=== PATIENT | female | born 1940 | race Caucasian/White ===

== ENCOUNTER 2017-10-09 02:02 | Inpatient (IN) | payer OTHER, MEDICARE ==
[~2017-10-09] VITALS: Ht 157.5 cm; Wt 88.1 kg
--- NOTE | 2017-10-09 02:34 | ED CARDIAC/CP/PALPITATIONS ---
History of Present Illness General Chief Complaint: Chest Pain Stated Complaint: PT C/O LOW BP,CP,+V YESTERDAY HX HYPERTENSION Source: patient, family, old records Exam Limitations: no limitations Vital Signs & Intake/Output Vital Signs & Intake/Output Vital Signs Date Time Temp Pulse Resp B/P B/P Pulse O2 O2 Flow FiO2 Mean Ox Delivery Rate 10/097 98.0 98 20 148/69 96 Room Air 10/09 0405 95 147/100 10/09 0340 98.0 117 18 127/71 95 Room Air 10/09 0332 98.0 117 20 127/71 / 0307 97.8 120 20 134/50 / 0226 97 Room Air 10/09 0221 97.8 104 16 161/94 96 Room Air Allergies Coded Allergies: Penicillins (Mild, rash 10/09/17) Triage Note: 77yo FEMALE TO RM 6 FROME TRIAGE W/CO "FUNNY EELING IN HER CHEST ALL DAY SUNDAY" STAES "HER BP WAS LOW LAST ARIC--?106/70" AND JUST DIDN'T FEEL RIGHT ALL DAY. Triage Nurses Notes Reviewed? yes HPI: Patient presents to the emergency department with an intermittent fluttering in her chest as well as intermittent indigestion feeling. Patient states his symptoms started on Sunday when she had a relatively sudden onset of crampy epigastric pain. The pain increased over approximately 15 minutes before she became nauseous and then vomited and when she vomited the pain went away. Patient then felt fine for the rest of Sunday however when she woke up on Sunday she was just feeling very weak and tired. Patient states that intermittently throughout the day she would get an indigestion feeling in her substernal area. Patient states that she would take Tums and the symptoms are slowly go away. She also noticed that she was getting a little bit short of breath with exertion. Tonight she felt a fluttering sensation in her chest. Patient did not take her evening dose of labetalol. Patient comes to the emergency department for evaluation. Past History Travel History Traveled to [place] past 21 day No Medical History Any Pertinent Medical History? see below for history Cardiovascular: hypertension, hyperlipidemia Endocrine: diabetes, hypothyroidism Influenza Vaccine: 03/04/09 Surgical History Surgical History: non-contributory Psychosocial History Who do you live with Spouse What is your primary language [place]ian Tobacco Use: Quit >30 days ago ETOH Use: denies use Illicit Drug Use: denies illicit drug use Family History Hx Contributory? No Review of Systems Review of Systems Constitutional: Reports: no symptoms. EENTM: Reports: no symptoms. Respiratory: Reports: see HPI, short of breath. Cardiovascular: Reports: see HPI, chest pain, palpitations. GI: Reports: see HPI, abdominal pain, nausea, vomiting. Genitourinary: Reports: no symptoms. Musculoskeletal: Reports: no symptoms. Skin: Reports: no symptoms. Neurological/Psychological: Reports: no symptoms. Hematologic/Endocrine: Reports: no symptoms. Immunologic/Allergic: Reports: no symptoms. All Other Systems: Reviewed and Negative Physical Exam Physical Exam General Appearance: well developed/nourished, alert, awake, anxious, mild distress Head: atraumatic, normal appearance Eyes: Bilateral: PERRL, EOMI. Ears, Nose, Throat: normal pharynx, normal ENT inspection, hearing grossly normal Neck: normal inspection, supple, full range of motion Respiratory: normal breath sounds, chest non-tender, no respiratory distress, lungs clear Cardiovascular: normal peripheral pulses, tachycardia, irregularly irregular Gastrointestinal: normal bowel sounds, soft, non-tender, no organomegaly Back: normal inspection, normal range of motion Extremities: normal inspection, normal capillary refill, normal range of motion, no edema Neurologic/Psych: no motor/sensory deficits, awake, alert, oriented x 3, normal mood/affect Skin: intact, normal color, warm/dry Lymphatic: no anterior cervical christopher Core Measures ACS in differential dx? Yes CVA/TIA Diagnosis No Sepsis Present: No Sepsis Focused Exam Completed? No Progress Differential Diagnosis: AMI, atrial fibrillation, myocarditis, pericarditis, pneumonia, pneumothorax, pulmonary embolism Plan of Care: Orders Procedure Date/time Status PARTIAL THROMBOPLASTIN TIME 10/09 236 Complete PROTHROMBIN TIME 10/09 236 Complete D-DIMER 10/10 235 Complete Telemetry/Affiliate Marketing Specialist 10/09 232 Active URINALYSIS 10/09 232 Complete THYROID STIMULATING HORMONE 10/09 232 Complete TROPONIN LEVEL 10/09 232 Complete MAGNESIUM 10/09 232 Complete COMPREHENSIVE METABOLIC PANEL 10/09 232 Complete CBC WITHOUT DIFFERENTIAL 10/09 232 Complete EKG 10/09 0205 Active Current Medications Sig/Nicol Start time Last Medication Dose Stop Time Status Admin Heparin Sodium 25,000 UNIT Q24H 10/09 0500 UNVr (Porcine) (Heparin) Sodium Chloride 500 ML Laboratory Tests 10/09/17 0315: Urinalysis LIGHT H, Urine Color YEL, Urine Clarity CLEAR, Urine pH 6.5, Ur Specific [place] 1.010, Urine Protein NEG, Urine Ketones NEG, Urine Nitrite NEG, Urine Bilirubin NEG, Urine Urobilinogen 0.2, Ur Leukocyte Esterase MOD H, Ur Microscopic SEDIMENT EXAMINED, Urine RBC RARE, Urine WBC 10-15 H, Ur Epithelial Cells FEW, Urine Bacteria FEW H, Urine Hemoglobin SMALL H, Urine Glucose 100 H 10/09/17 0300: PT 11.0, INR 1.01, APTT 29, D-Dimer High Sensitivty 216 10/09/17 0237: Anion Gap 14, Estimated GFR 43 L, BUN/Creatinine Ratio 25.8 H, Glucose 170 H, Calcium 9.7, Magnesium 2.0, Total Bilirubin 0.7, AST 17, ALT 19, Alkaline Phosphatase 83, Troponin I < 0.01, Total Protein 7.3, Albumin 4.4, Globulin 2.9, Albumin/Globulin Ratio 1.5, TSH 3.500, CBC w Diff NO MAN DIFF REQ, RBC 4.48, MCV 89.6, MCH 29.9, MCHC 33.3, RDW 13.1, MPV 7.4, Gran % 63.2, Lymphocytes % 24.6, Monocytes % 8.1, Eosinophils % 3.4, Basophils % 0.7, Absolute Granulocytes 4.8, Absolute Lymphocytes 1.9, Absolute Monocytes 0.6, Absolute Eosinophils 0.3, Absolute Basophils 0.1 10/09/17 0233: PT Cancelled, INR Cancelled, APTT Cancelled Diagnostic Imaging: Viewed by Me: Radiology Read. Discussed w/RAD: Radiology Read. CXR Impression: PATIENT: SANAM DA SILVA PRESENT AGE : 77 PATIENT ACCOUNT NO: [id number] : 38 LOCATION: [facility] ORDERING PHYSICIAN: Hank Keith MD SERVICE DATE: 10/09/17 EXAM TYPE: RAD - XRY-PORTABLE CHEST XRAY EXAMINATION: XR PORTABLE CHEST CLINICAL INFORMATION: Chest pain. COMPARISON: CT from 08/11/2009 TECHNIQUE: Portable frontal view of the chest was obtained. FINDINGS: BX leads overlie the chest. The lungs are well expanded. There is no focal consolidation, edema, or effusion. No pneumothorax. The cardiomediastinal silhouette is within normal limits. No acute osseous abnormality. IMPRESSION: No acute pulmonary findings. DICTATED BY: Corky Dickinson MD DATE/TIME DICTATED:10/09/17307 BOTTOM MAN:JAYSON DATE/ TIME TRANSCRIBED:10/09/17307 CONFIDENTIAL, DO NOT COPY WITHOUT APPROPRIATE AUTHORIZATION. <Electronically signed in Other Vendor System> SIGNED BY: Corky Dickinson MD 10/09/17310 Initial ED EKG: NEW ONSET AFIB WITH RVR AND LBBB, THE A FIB IS NEW, SHE HAS HAD LBBB IN THE PAST EVEN THOUGH PRIOR EKG SHOWS NSR WITHOUT A LBBB. Prior EKG: changed Rhythm Strip: atrial fibrillation Comments: I discussed with the patient and her granddaughter the importance of anticoagulation. Questions are answered. Heparin drip has been initiated. Departure Departure Disposition: STILL A PATIENT Condition: Stable Clinical Impression Primary Impression: New onset a-fib Referrals: Jean TOVAR,Eliceo Ramos (PCP/Family) Departure Forms: Customer Survey General Discharge Information Admission Note Spoke With: Neha Barnes MD Documentation of Exam: Documentation of any treatments & extenuating circumstances including Concerns Regarding Discharge (functional status, medication knowledge or non-compliance, living conditions, etc.) that warrant an admission rather than observation: [ ADMIT TO TELE, SERIAL ENZYMES, CARDIOLOGYCONSULT (KORI LIMA), IV HEPARIN, RATE CONTROL] Critical Care Note Critical Care Note Critical Care Time: mins: (120 MIN)
[2017-10-09 02:51] LABS: ABSOLUTE BASOPHIL COUNT 0.1 /CUMM (0.0-0.2); ABSOLUTE EOSINOPHIL COUNT 0.3 /CUMM (0.0-0.7); ABSOLUTE GRANULOCYTE CT 4.8 /CUMM (1.4-6.5); ABSOLUTE LYMPH COUNT 1.9 /CUMM (1.2-3.4); ABSOLUTE MONOCYTE COUNT 0.6 /CUMM (0.10-0.60); BASOPHIL % 0.7 % (0.0-2.0); EOSINOPHIL % 3.4 % (0-5); GRANULOCYTE % 63.2 % (42.2-75.2); HEMATOCRIT 40.1 % (37-47); MEAN CORPUSCULAR HGB 29.9 PG (27.0-31.0); MEAN CORPUSCULAR HGB CONC 33.3 G/DL (33.0-37.0); MEAN CORPUSCULAR VOLUME 89.6 FL (81.0-99.0); MEAN PLATELET VOLUME 7.4 FL (7.4-10.4); PLATELET COUNT 261 /CUMM (130-400); RBC DISTRIBUTION WIDTH 13.1 % (11.5-14.5); RED BLOOD CELL CT 4.48 /CUMM (4.20-5.40); WHITE BLOOD CELL COUNT 7.6 /CUMM (4.8-10.8)
--- NOTE | 2017-10-09 03:11 | RADIOLOGY REPORT ---
EXAMINATION: XR PORTABLE CHEST CLINICAL INFORMATION: Chest pain. COMPARISON: CT from 08/11/2009 TECHNIQUE: Portable frontal view of the chest was obtained. FINDINGS: BX leads overlie the chest. The lungs are well expanded. There is no focal consolidation, edema, or effusion. No pneumothorax. The cardiomediastinal silhouette is within normal limits. No acute osseous abnormality. IMPRESSION: No acute pulmonary findings.
[2017-10-09 03:22] LABS: PTT 29 SEC (25-37)
[2017-10-09] MEDS ORDERED: CRESTOR10 M1 PO (05:09)
[2017-10-09] MEDS ORDERED: LABETALOL HCL200 M1 PO (05:09)
[2017-10-09] MEDS ORDERED: AMLODIPINE BESY10 M1 PO (05:09)
[2017-10-09] MEDS ORDERED: METFORMIN HCL1000 M1 PO (05:10)
[2017-10-09] MEDS ORDERED: LEVOTHYROXINE100 MC1 PO (05:10)
[2017-10-09] MEDS ORDERED: EDARBYCLOR 40-1 EAC1 PO (05:10)
--- NOTE | 2017-10-09 05:17 | History & Physical ---
Augie Montana 10/09/17 0514: General Information and HPI MD Statement: I have seen and personally examined SANAM DA SILVA and documented this H&P. The patient is a 77 year old F who presented with a patient stated chief complaint of [CHEST PAIN]. Source of Information: patient, family, old records Exam Limitations: no limitations History of Present Illness: This is 77-year-old female with a medical history of hypertension, hyperlipidemia, hypothyroidism, gyx-wlyetri-pfrjhhnts diabetes mellitus. She presents to the emergency department with an intermittent fluttering in her chest as well as intermittent indigestion feeling. She stated that 2 days ago she started to complain of abdominal discomfort ans after that she felt nauseated and she vomited once non bloody and after that the ABD pain subside. On the Next day she start to feel some acid reflux symptoms with some chest discomfort so she took tums that did not help, also she felt tired, weak and fatigued. she stated that when she went to check her BP she found her heart rate more than 120s and her BP was low of 106/60 which is not her usual as most of the time her BP run in 140s. she deny any chest pain, chest pressure, shortness of breath, dizziness, lightheadedness, orthopnea. She stated that 2 weeks ago she felt dizzy and lightheaded so she checked her BP and was low 95/60, she went to see her PCP how recheck it and was in 120s and he advice her not to take her BP meds in that day. Currently she denies any fever, chills, shortness of breath, abdominal pain, nausea, vomiting, diarrhea, constipation, hematuria, dysuria, headache, blurry vision. She stated that he Norvasc was decreased from 10 mg to 5 mg due to the lower extremity edema. In the ED she was found to have new-onset A-fib with old LBBB, she was received total of 10 mg of IV lopressor and full dose of ASA and started on herparin drip. Her Cr/BUN at baseline 1.. CXR was within normal limits. Off note the p.t EMR showed that she was admitted to [facility] in 2009, and on that time she has sinus bradycardia with LBBB, we currently do not have the EKG of 2009, what we have is the EKG form 2002 that showed she was in normal sinus rhythm. Allergies/Medications Allergies: Coded Allergies: Penicillins (Mild, rash 10/09/17) Home Med list Amlodipine Besylate 10 MG TABLET 0.5 TAB PO DAILY HTN (Reported) Azilsartan Med/Chlorthalidone (Edarbyclor 40-25 MG Tablet) 40 MG-25 MG TABLET 1 TAB PO DAILY HTN (Reported) Labetalol HCl 200 MG TABLET 1 TAB PO BID HTN (Reported) Levothyroxine Sodium 100 MCG TABLET 1 TAB PO DAILY HYPOTHYRIOD (Reported) Metformin HCl 1,000 MG TABLET 1 TAB PO BID DM (Reported) Rosuvastatin Calcium (Crestor) 10 MG TABLET 1 TAB PO DAILY HTN (Reported) Past History Travel History Traveled to [place] past 21 day No Medical History Cardiovascular: hypertension, hyperlipidemia Endocrine: diabetes, hypothyroidism Influenza Vaccine: 03/04/09 Surgical History Surgical History: cholecystectomy Past Family/Social History Family History Relations & Conditions if any MOTHER ([place]). SISTER ([place], [place]). Psychosocial History ETOH Use: denies use Illicit Drug Use: denies illicit drug use Functional Ability ADLs Independent: dressing, eating, toileting, bathing. Ambulation: independent IADLs Independent: shopping, housework, finances, food prep, telephone, transportation , medication admin. Review of Systems Review of Systems Constitutional: Reports: see HPI. Cardiovascular: Reports: see HPI. Respiratory: Reports: see HPI. GI: Reports: see HPI. Genitourinary: Reports: see HPI. Exam & Diagnostic Data Last 24 Hrs of Vital Signs/I&O Vital Signs Date Time Temp Pulse Resp B/P B/P Pulse O2 O2 Flow FiO2 Mean Ox Delivery Rate 10/09 0427 98.0 98 20 148/69 96 Room Air 10/09 0405 95 147/100 10/09 0340 98.0 117 18 127/71 95 Room Air 10/09 0332 98.0 117 20 127/71 10/09 0307 97.8 120 20 134/50 10/09 0226 97 Room Air 10/09 0221 97.8 104 16 161/94 96 Room Air Intake & Output 10/09 0800 05/08 0000 05 1600 Intake Total 1000 Output Total Balance 1000 Intake, IV 1000 Intake, Oral 0 Patient 185 lb Weight Physical Exam General Appearance Alert, Oriented X3, Cooperative, No Acute Distress HEENT PERRLA, EOMI Neck Supple Cardiovascular Normal S1, Normal S2, irregular irregular Lungs Clear to Auscultation, Normal Air Movement Abdomen Normal Bowel Sounds, Soft, No Tenderness Extremities No Cyanosis, No Edema Last 24 Hrs of Labs/Олег: Laboratory Tests 10/09/17 0315: Urinalysis LIGHT H, Urine Color YEL, Urine Clarity CLEAR, Urine pH 6.5, Ur Specific [place] 1.010, Urine Protein NEG, Urine Ketones NEG, Urine Nitrite NEG, Urine Bilirubin NEG, Urine Urobilinogen 0.2, Ur Leukocyte Esterase MOD H, Ur Microscopic SEDIMENT EXAMINED, Urine RBC RARE, Urine WBC 10-15 H, Ur Epithelial Cells FEW, Urine Bacteria FEW H, Urine Hemoglobin SMALL H, Urine Glucose 100 H 10/09/17 0300: PT 11.0, INR 1.01, APTT 29, D-Dimer High Sensitivty 216 10/09/17 0237: Anion Gap 14, Estimated GFR 43 L, BUN/Creatinine Ratio 25.8 H, Glucose 170 H, Calcium 9.7, Magnesium 2.0, Total Bilirubin 0.7, AST 17, ALT 19, Alkaline Phosphatase 83, Troponin I < 0.01, Total Protein 7.3, Albumin 4.4, Globulin 2.9, Albumin/Globulin Ratio 1.5, TSH 3.500, CBC w Diff NO MAN DIFF REQ, RBC 4.48, MCV 89.6, MCH 29.9, MCHC 33.3, RDW 13.1, MPV 7.4, Gran % 63.2, Lymphocytes % 24.6, Monocytes % 8.1, Eosinophils % 3.4, Basophils % 0.7, Absolute Granulocytes 4.8, Absolute Lymphocytes 1.9, Absolute Monocytes 0.6, Absolute Eosinophils 0.3, Absolute Basophils 0.1 10/09/17 0233: PT Cancelled, INR Cancelled, APTT Cancelled Diagnostic Data EKG Results A-fib with HR 124, CXR Results EXAMINATION: XR PORTABLE CHEST CLINICAL INFORMATION: Chest pain. COMPARISON: CT from 08/11/2009 TECHNIQUE: Portable frontal view of the chest was obtained. FINDINGS: BX leads overlie the chest. The lungs are well expanded. There is no focal consolidation, edema, or effusion. No pneumothorax. The cardiomediastinal silhouette is within normal limits. No acute osseous abnormality. IMPRESSION: No acute pulmonary findings. Assessment/Plan Assessment: This is 77-year-old female with a medical history of hypertension, hyperlipidemia, hypothyroidism, nci-ydzbrgn-pgymydbjd diabetes mellitus. She presents to the emergency department with an intermittent fluttering in her chest as well as intermittent indigestion feeling. Problem list: -New onset atrial fibrillation with [id number] Score=5 -Chest discomfort Plan: -Admit patient to telemetry floor -Vitals every shift -Continue heparin drip -To be changed to oral anticoagulation in a.m. -Start Cardizem 30 mg by mouth every 8 -IV metoprolol as needed for additional rate control -Seizures troponin and EKG -Echocardiogram -Cardiology consultation in a.m. -Obtain TSH, free T4, mag and phosphorus -Hold off the Norvasc for now -Continue the rest of home medications -Accu-Chek, insulin sliding scale -Carbohydrate consistent diet -Pain pathway -DVT prophylaxis on heparin drip -Full code. As Ranked By This Provider Problem List: 1. New onset a-fib Core Measures/Misc (02/18) Acute Coronary Syndrome ACS Diagnosis: No Congestive Heart Failure Congestive Heart Failure Diagnosis No Cerebrovascular Accident CVA/TIA Diagnosis: No VTE (View Protocol) VTE Risk Factors Age>40 No Mechanical VTE Prophylaxis d/t N/A MechProphylax Ordered No VTE Pharm Prophylaxis d/t NA PharmProphylax ordered Sepsis (View protocol) Sepsis Present: No Darlene Doll 10/09/17 1024: Attending MD Review Statement Attending Statement Attending MD Statement: examined this patient, discuss w/resident/PA/COMMUNITY RESOURCE CONSULTANT, agreed w/resident/PA/COMMUNITY RESOURCE CONSULTANT, discussed with family, reviewed EMR data (avail), discussed with nursing, discussed with case mgmt, reviewed images, amended to note Attending Assessment/Plan: Patient admitted here for intermittient heart racing complaint alongwith abdominal discomfort. Patient found to have new onset afib in ER. Obtain serial cardiac enzymes, echo and cardiology consult. Acheive rate control and anticoagulation as per cardiology. Resume home meds for bp control. gi/dvt prophyalxis full code.
[2017-10-09 06:22] LABS: ABSOLUTE BASOPHIL COUNT 0 /CUMM (0.0-0.2); ABSOLUTE EOSINOPHIL COUNT 0.2 /CUMM (0.0-0.7); ABSOLUTE GRANULOCYTE CT 4.1 /CUMM (1.4-6.5); ABSOLUTE LYMPH COUNT 1.8 /CUMM (1.2-3.4); ABSOLUTE MONOCYTE COUNT 0.5 /CUMM (0.10-0.60); BASOPHIL % 0.7 % (0.0-2.0); EOSINOPHIL % 3.6 % (0-5); GRANULOCYTE % 61.6 % (42.2-75.2); HEMATOCRIT 38.8 % (37-47); MEAN CORPUSCULAR HGB 29.8 PG (27.0-31.0); MEAN CORPUSCULAR HGB CONC 33.5 G/DL (33.0-37.0); MEAN CORPUSCULAR VOLUME 88.8 FL (81.0-99.0); MEAN PLATELET VOLUME 7.2 FL (7.4-10.4); PLATELET COUNT 258 /CUMM (130-400); RBC DISTRIBUTION WIDTH 12.7 % (11.5-14.5); RED BLOOD CELL CT 4.36 /CUMM (4.20-5.40); WHITE BLOOD CELL COUNT 6.7 /CUMM (4.8-10.8)
--- NOTE | 2017-10-09 10:16 | Cons- Cardiology ---
General Information and HPI Consulting Request Date of Consult: 10/09/17 Requested By: Darlene Doll MD Reason for Consult: New onset atrial fibrillation Source of Information: patient Exam Limitations: no limitations History of Present Illness: The patient is 77-year-old female known to me with a long history of hypertension, left bundle branch block, hyperlipidemia, hypothyroidism, non- insulin-dependent dependent diabetes who now presents with indigestion along with a fluttering in her chest. Her family is present at the bedside. She had been recently seen by Dr. Pena in the office and was found to be hypotensive. Her medications were withheld. She follow-up with me and was again found to be hypertensive. Therefore her labetalol, Edarbycor, and amlodipine were resumed. Follow-up visit found her blood pressure be 140/80. She was scheduled for a outpatient 24-hour blood pressure monitor but did not want to go to [place] to obtain it so arrangements are being made for her to receive it in the [place] office. Patient states that over the past few days she had not felt well complaining of abdominal discomfort with nausea and one episode of vomiting. She has been monitoring her blood pressure at home and also found that her heart rate was in the 110s. Due to the fluttering along with tachycardia she presented to the emergency room for evaluation where she was found to be in atrial fibrillation. She was administered 10 mg of IV metoprolol and placed on a heparin drip. Allergies/Medications Allergies: Coded Allergies: Penicillins (Mild, rash 10/09/17) Home Med List: Amlodipine Besylate 10 MG TABLET 0.5 TAB PO DAILY HTN (Reported) Azilsartan Med/Chlorthalidone (Edarbyclor 40-25 MG Tablet) 40 MG-25 MG TABLET 1 TAB PO DAILY HTN (Reported) Labetalol HCl 200 MG TABLET 1 TAB PO BID HTN (Reported) Levothyroxine Sodium 100 MCG TABLET 1 TAB PO DAILY HYPOTHYRIOD (Reported) Metformin HCl 1,000 MG TABLET 1 TAB PO BID DM (Reported) Rosuvastatin Calcium (Crestor) 10 MG TABLET 1 TAB PO DAILY HTN (Reported) Current Medications: Current Medications Sig/Nicol Start time Last Medication Dose Route Stop Time Status Admin Acetaminophen 650 MG Q6P PRN 10/09 0415 AC PO Aspirin 0 .STK-MED ONE 10/09 0254 DC PO Aspirin 325 MG ONCE ONE 10/09 0245 DC 05/08 PO 05/ 0246 0307 Atorvastatin Calcium 40 MG 1700 10/09 1700 AC PO Chlorthalidone 25 MG DAILY 10/09 0900 AC 05 PO 0854 Diltiazem HCl 30 MG Q8 10/09 0600 AC 05 PO 0625 Heparin Sodium 0 .STK-MED ONE 10/09 0515 DC (Porcine) .ROUTE Heparin Sodium 5,000 UNIT ONCE ONE 10/09 0500 DC 10/09 (Porcine) IV 10/09 0501 0513 Heparin Sodium 25,000 UNIT Q24H 10/09 0500 AC 10/09 (Porcine) IV 0513 Sodium Chloride 500 ML Hydrocodone Bitart/ 1 TAB Q12P PRN 10/09 0515 AC Acetaminophen PO Insulin Aspart 0 TIDAC 10/09 08 AC 10/09 SC 0828 Labetalol HCl 200 MG BID 10/09 0900 AC 10/09 PO 0854 Levothyroxine Sodium 0.1 MG DAILY 10/09 0900 AC 10/09 PO 0854 Losartan Potassium 25 MG DAILY 10/09 09 AC 10/09 PO 0854 Metoprolol Tartrate 5 MG ONCE ONE 10/09 0330 DC 05/ IV 05 0331 0332 Metoprolol Tartrate 5 MG ONCE ONE 10/09 0300 DC 05/ IV 10/09 0301 0307 Metoprolol Tartrate 0 .STK-MED ONE 10/09 0254 DC IV Sodium Chloride 1,000 ML BOLUS ONE 10/09 0300 DC 05/ IV 05/ 0359 0307 Review of Systems Review of Systems: Eyes no blurred or double vision Ears no deafness or ringing Nose and throat no recurrent sinusitis Lungs per history of present illness Heart per history of present illness Abdomen as noted above Musculoskeletal occasional muscle and joint pains Psych no anxiety or depression Neuro without recurrent headache or seizures Endocrine no heat or cold intolerance Past History Travel History Traveled to [place] past 21 day No Medical History Cardiovascular: hypertension, hyperlipidemia Endocrine: diabetes, hypothyroidism Surgical History Surgical History: cholecystectomy Family History Relations & Conditions If Any: MOTHER ([place]). SISTER ([place], [place]). Psychosocial History Smoking Status: Former Smoker ETOH Use: denies use Illicit Drug Use: denies illicit drug use Functional Ability ADLs Independent: dressing, eating, toileting, bathing. Ambulation: independent IADLs Independent: shopping, housework, finances, food prep, telephone, transportation , medication admin. Exam & Diagnostic Data Vital Signs and I&O Vital Signs Date Time Temp Pulse Resp B/P B/P Pulse O2 O2 Flow FiO2 Mean Ox Delivery Rate 10/09 0854 98.0 109 20 131/76 05/08 0854 98.0 109 20 131/76 05/08 0625 98.0 96 20 156/89 05/08 0602 98.0 99 20 167/65 95 Room Air 05/08 0427 98.0 98 20 148/69 96 Room Air /08 0405 95 147/100 05/08 0340 98.0 117 18 127/71 95 Room Air /08 0332 98.0 117 20 127/71 /08 0307 97.8 120 20 134/50 05/08 0226 97 Room Air / 0221 97.8 104 16 161/94 96 Room Air Intake & Output 10/09 1600 10/09 0800 / 0000 10/08 1600 10/08 0800 10/08 0000 Intake Total 1000 Output Total Balance 1000 Intake, IV 1000 Intake, Oral 0 Patient 185 lb 185 lb Weight Physical Exam: Patient is a well-developed well-nourished female appearing in no acute distress HEENT is unremarkable Neck is supple there is no JVD Lungs are clear Heart irregular rhythm S1 and S2 are normal no murmurs gallops or rubs Abdomen bowel sounds positive Extremities without edema Labs/Олег Results: Laboratory Tests 10/09 10/09 0916 0609 Chemistry Sodium (137 - 145 mmol/L) 143 Potassium (3.5 - 5.1 mmol/L) 4.1 Chloride (98 - 107 mmol/L) 108 H Carbon Dioxide (22 - 30 mmol/L) 24 Anion Gap (5 - 16) 11 BUN (7 - 17 mg/dL) 27 H Creatinine (0.5 - 1.0 mg/dL) 1.0 Estimated GFR (>60 ml/min) 53 L BUN/Creatinine Ratio (7 - 25 %) 27.0 H Troponin I (< 0.11 ng/ml) < 0.01 Hematology CBC w Diff NO MAN DIFF REQ WBC (4.8 - 10.8 /CUMM) 6.7 RBC (4.20 - 5.40 /CUMM) 4.36 Hgb (12.0 - 16.0 G/DL) 13.0 Hct (37 - 47 %) 38.8 MCV (81.0 - 99.0 FL) 88.8 MCH (27.0 - 31.0 PG) 29.8 MCHC (33.0 - 37.0 G/DL) 33.5 RDW (11.5 - 14.5 %) 12.7 Plt Count (130 - 400 /CUMM) 258 MPV (7.4 - 10.4 FL) 7.2 L Gran % (42.2 - 75.2 %) 61.6 Lymphocytes % (20.5 - 51.1 %) 27.0 Monocytes % (1.7 - 9.3 %) 7.1 Eosinophils % (0 - 5 %) 3.6 Basophils % (0.0 - 2.0 %) 0.7 Absolute Granulocytes (1.4 - 6.5 /CUMM) 4.1 Absolute Lymphocytes (1.2 - 3.4 /CUMM) 1.8 Absolute Monocytes (0.10 - 0.60 /CUMM) 0.5 Absolute Eosinophils (0.0 - 0.7 /CUMM) 0.2 Absolute Basophils (0.0 - 0.2 /CUMM) 0 10/09 10/09 0315 0300 Coagulation PT (9.4 - 12.5 SEC) 11.0 INR (0.90 - 1.19) 1.01 APTT (25 - 37 SEC) 29 D-Dimer High Sensitivty (0 - 243 ng/ml) 216 Urines Urinalysis LIGHT H Urine Color (YEL,AMB,STR) YEL Urine Clarity (CLEAR) CLEAR Urine pH (5.0 - 8.0) 6.5 Ur Specific [place] (1.001 - 1.035) 1.010 Urine Protein (NEG,<30 MG/DL) NEG Urine Ketones (NEG) NEG Urine Nitrite (NEG) NEG Urine Bilirubin (NEG) NEG Urine Urobilinogen (0.1 - 1.0 EU/dl) 0.2 Ur Leukocyte Esterase (NEG) MOD H Ur Microscopic SEDIMENT EXAMINED Urine RBC (0 - 5 /HPF) RARE Urine WBC (0 - 2 /HPF) 10-15 H Ur Epithelial Cells (NONE,FEW) FEW Urine Bacteria (NEG/NONE) FEW H Urine Hemoglobin (NEG) SMALL H Urine Glucose (N MG/DL) 100 H 10/09 10/09 0237 0233 Chemistry Sodium (137 - 145 mmol/L) 142 Potassium (3.5 - 5.1 mmol/L) 4.4 Chloride (98 - 107 mmol/L) 105 Carbon Dioxide (22 - 30 mmol/L) 23 Anion Gap (5 - 16) 14 BUN (7 - 17 mg/dL) 31 H Creatinine (0.5 - 1.0 mg/dL) 1.2 H Estimated GFR (>60 ml/min) 43 L BUN/Creatinine Ratio (7 - 25 %) 25.8 H Glucose (65 - 99 mg/dL) 170 H Calcium (8.4 - 10.2 mg/dL) 9.7 Magnesium (1.6 - 2.3 mg/dL) 2.0 Total Bilirubin (0.2 - 1.3 mg/dL) 0.7 AST (14 - 36 U/L) 17 ALT (9 - 52 U/L) 19 Alkaline Phosphatase (<127 U/L) 83 Troponin I (< 0.11 ng/ml) < 0.01 Total Protein (6.3 - 8.2 g/dL) 7.3 Albumin (3.5 - 5.0 g/dL) 4.4 Globulin (1.9 - 4.2 gm/dL) 2.9 Albumin/Globulin Ratio (1.1 - 2.2 %) 1.5 TSH (0.270 - 4.200 uIU/mL) 3.500 Free T4 (0.78 - 2.44 ng/dL) 1.16 Coagulation PT Cancelled INR Cancelled APTT Cancelled Hematology CBC w Diff NO MAN DIFF REQ WBC (4.8 - 10.8 /CUMM) 7.6 RBC (4.20 - 5.40 /CUMM) 4.48 Hgb (12.0 - 16.0 G/DL) 13.4 Hct (37 - 47 %) 40.1 MCV (81.0 - 99.0 FL) 89.6 MCH (27.0 - 31.0 PG) 29.9 MCHC (33.0 - 37.0 G/DL) 33.3 RDW (11.5 - 14.5 %) 13.1 Plt Count (130 - 400 /CUMM) 261 MPV (7.4 - 10.4 FL) 7.4 Gran % (42.2 - 75.2 %) 63.2 Lymphocytes % (20.5 - 51.1 %) 24.6 Monocytes % (1.7 - 9.3 %) 8.1 Eosinophils % (0 - 5 %) 3.4 Basophils % (0.0 - 2.0 %) 0.7 Absolute Granulocytes (1.4 - 6.5 /CUMM) 4.8 Absolute Lymphocytes (1.2 - 3.4 /CUMM) 1.9 Absolute Monocytes (0.10 - 0.60 /CUMM) 0.6 Absolute Eosinophils (0.0 - 0.7 /CUMM) 0.3 Absolute Basophils (0.0 - 0.2 /CUMM) 0.1 Diagnostic Data EKG Results Atrial fibrillation with left bundle branch block CXR Results IMPRESSION: No acute pulmonary findings. Assessment/Plan Assessment/Plan #1. New onset atrial fibrillation. TSH is normal which rules out thyroid disease as an etiology. This is most likely secondary to lone atrial fibrillation with hypertension and possible dilated atrium. #2. Long-standing hypertension #3. Chronic left bundle branch block #4. Hyperlipidemia #5. Jvv-qnhozro-meicrbykv diabetes Recommendations #1. I agree with continuing her labetalol and adding diltiazem #2. Hold amlodipine #3. Continue heparin and transitioned to Eliquis 5 mg twice a day. Patient and family are aware of the potential risk of stroke without anticoagulation along with bleeding due to Eliquis #4. Would obtain an echocardiogram to assess her overall LV function along with atrial size #5. Continue monitoring on telemetry #6. Dependent on patient's course will consider OSMEL cardioversion either as inpatient or rate control and schedule it as an outpatient next Thank you for allowing [facility] to participate in the care of your patient. Consult Acknowledgment - Thank you for your consult request.
[2017-10-09 11:38] LABS: PTT 85 SEC (25-37)
--- NOTE | 2017-10-09 12:32 | ECHOCARDIOGRAM REPORT ---
SANAM DA SILVA Age: 77 : 1940 Gender: F Exam Date: 10/09/2017 09:35 Exam Location: ER Ht (in): 62 Wt (lb): 185 BSA: 1.95 BP: 131 / 76 Ordering Physician: Augie Montana MD Referring Physician: Augie Montana MD Technologist: Amandeep Cohn RDCS Room Number: ER 6 Indications: AFIB/FLUTTER Rhythm: Atrial fibrillation Technical Quality: fair FINDINGS Left Ventricle Normal size left ventricle. Left ventricular wall thickness mildly increased. Normal left ventricular ejection fraction estimated at 55-60%. Right Ventricle Normal right ventricular size and function. Right Atrium Normal right atrial size. Left Atrium Mild left atrial dilatation. Mitral Valve Mild mitral annular calcification. Trace mitral regurgitation. Aortic Valve Aortic sclerosis. Mild aortic regurgitation. Tricuspid Valve Tricuspid valve is normal in structure and function. Mild tricuspid regurgitation. Right ventricular systolic pressure estimated to be at upper limits of normal at 34 mmHg. Pulmonic Valve Pulmonic valve not well visualized, grossly normal. Pericardium No pericardial effusion. Great Vessels Normal size aortic root. CONCLUSIONS Normal left and right ventricular systolic function . Mild Left ventricular hypertrophy. Mild left atrial enlargement. No significant Pulmonary hypertension. Gerald Montoya M.D. (Electronically Signed) Final Date: 09 Oct 2017 12:31 MEASUREMENTS (Male / Female) Normal Values 2D ECHO LV Diastolic Diameter PLAX 3.9 cm 4.2 - 5.9 / 3.9 - 5.3 cm LV Systolic Diameter PLAX 2.7 cm 2.1 - 4.0 cm LV Fractional Shortening PLAX 30.8 % 25 - 46 % LV Ejection Fraction 2D Teich 59.0 % IVS Diastolic Thickness 1.3 cm LVPW Diastolic Thickness 1.3 cm LV Relative Wall Thickness 0.7 RV Internal Dim ED PLAX 2.9 cm 1.9 - 3.8 cm LVOT Diameter 1.9 cm Aortic Root Diameter 2.5 cm LA Systolic Diameter LX 4.0 cm 3.0 - 4.0 / 2.7 - 3.8 cm Ascending Aorta Diameter 3.3 cm DOPPLER AV Peak Velocity 149.0 cm/s AV Peak Gradient 8.9 mmHg AV Mean Velocity 95.8 cm/s AV Mean Gradient 5.0 mmHg AV Velocity Time Integral 26.5 cm AI Deceleration Jerauld 241.0 cm/s AI Peak Velocity 441.0 cm/s AI Pressure Half Time 537.0 ms AI Peak Gradient 77.8 mmHg LVOT Peak Velocity 85.7 cm/s LVOT Peak Gradient 2.9 mmHg LVOT Mean Velocity 52.8 cm/s LVOT Mean Gradient 1.0 mmHg LVOT Velocity Time Integral 14.6 cm LVOT Stroke Volume 41.4 cm AV Area Cont Eq vti 1.6 cm AV Area Cont Eq pk 1.6 cm MV Peak Velocity 115.5 cm/s MV Peak Gradient 5.3 mmHg MV Mean Velocity 60.9 cm/s MV Mean Gradient 2.0 mmHg Mitral E Point Velocity 117.0 cm/s MV PHT Velocity 103.2 cm/s MV Deceleration Jerauld 801.5 cm/s MV Pressure Half Time 38.6 ms MV Area PHT 5.7 cm MV Deceleration Time 165.0 ms TR Peak Velocity 270.0 cm/s TR Peak Gradient 29.2 mmHg Right Atrial Pressure 5.0 mmHg Pulmonary Artery Systolic Pressu 34.2 mmHg Right Ventricular Systolic Press 34.2 mmHg PV Peak Velocity 127.0 cm/s PV Peak Gradient 6.5 mmHg PV Mean Velocity 72.2 cm/s PV Mean Gradient 3.0 mmHg PV Velocity Time Integral 20.5 cm LV E' Lateral Velocity 6.0 cm/s Mitral E to LV E' Lateral Ratio 19.4 LV E' Septal Velocity 4.5 cm/s Mitral E to LV E' Septal Ratio 26.1
[2017-10-09 16:31] VITALS: BP 170/89
--- NOTE | 2017-10-09 16:41 | Event Note ---
Event Note Event Note: Patient converted to NSR this afternoon, EKG around 3pm showed NSR with rate of 50.
[2017-10-09 17:05] VITALS: BP 172/66
[2017-10-09 17:22] VITALS: BP 168/66
[2017-10-09 18:47] VITALS: BP 146/56
[2017-10-09 22:14] VITALS: BP 140/76
[2017-10-10 07:21] VITALS: BP 128/58
--- NOTE | 2017-10-10 07:35 | PN- Housestaff ---
Chris TOVAR,Josue 10/10/17 0734: Subjective Follow-up For: new onset afib Tele-Events Since Last Visit: nsr 42-840 Subjective: Saw pt at bedside this AM. She stated taht she spent most of the day in bed and has no complaints. She denies any chest pressure, pain or SOB. Review of Systems Constitutional: Denies: chills, weakness. EENTM: Reports: see HPI. Cardiovascular: Denies: chest pain, palpitations. Respiratory: Reports: no symptoms. Gastrointestinal: Reports: no symptoms. Genitourinary: Reports: no symptoms. Musculoskeletal: Reports: no symptoms. Objective Last 24 Hrs of Vital Signs/I&O Vital Signs Date Time Temp Pulse Resp B/P B/P Pulse O2 O2 Flow FiO2 Mean Ox Delivery Rate 10/10 720 97.8 51 20 128/58 93 Room Air / 0544 44 140/76 05/08 2305 47 140/76 05/08 2305 47 140/76 05/08 2214 98.3 43 24 140/76 91 05/08 1847 146/56 05/08 1735 168/66 05/08 1722 168/66 05/08 1705 98.9 56 20 172/66 95 05/08 1631 98.0 50 18 170/89 95 Room Air 05/08 1616 98.0 56 20 170/89 95 Room Air 05/08 1425 54 16 156/70 96 Room Air 05/08 1332 98.1 52 18 137/62 05/08 1241 52 18 137/62 96 Room Air 05/08 1055 98.1 110 18 138/66 96 Room Air 05/08 0854 98.0 109 20 131/76 05/08 0854 98.0 109 20 131/76 05/08 0854 98.3 109 20 131/79 96 Room Air Intake & Output 10/10 1600 / 0800 05/ 0000 Intake Total 200 300 Output Total Balance 200 300 Intake, Oral 200 300 Patient 88.054 kg Weight Weight Bed scale Measurement Method Physical Exam General Appearance: Alert, Oriented X3, Cooperative, No Acute Distress Skin: No Significant Lesion HEENT: Atraumatic, PERRLA, EOMI Neck: Supple Cardiovascular: Regular Rate, Normal S1, Normal S2, No Murmurs Lungs: Clear to Auscultation, Normal Air Movement Abdomen: Soft, No Tenderness Extremities: No Edema Current Medications: Current Medications Sig/Nicol Start time Last Medication Dose Route Stop Time Status Admin Acetaminophen 650 MG Q6P PRN 10/09 0515 AC PO Apixaban 5 MG BID 10/09 1156 AC 10/09 PO 2055 Atorvastatin Calcium 40 MG 1700 10/09 1700 AC 10/09 PO 1811 Atropine Sulfate 1 MG ONE ONE 10/10 0645 DC IV 10/10 0646 Chlorthalidone 25 MG DAILY 10/09 899 AC 10/09 PO 0854 Diltiazem HCl 30 MG Q8 10/09 0600 AC 10/09 PO 0625 Heparin Sodium 25,000 UNIT Q24H 10/09 0500 DC 10/09 (Porcine) IV 10/09 1400 0513 Sodium Chloride 500 ML Hydralazine HCl 25 MG ONCE ONE 10/09 1730 DC 10/09 PO 10/09 1731 1735 Hydrocodone Bitart/ 1 TAB Q12P PRN 10/09 0515 AC Acetaminophen PO Insulin Aspart 0 TIDAC 10/10 799 AC 10/09 SC 1811 Labetalol HCl 200 MG BID 10/09 09 AC 10/09 PO 0854 Levothyroxine Sodium 0.1 MG DAILY 10/09 899 AC 10/09 PO 0854 Losartan Potassium 25 MG DAILY 10/09 899 AC 10/09 PO 0854 Last 24 Hrs of Lab/Олег Results Last 24 Hrs of Labs/Mics: Laboratory Tests 10/09/17 2300: APTT Cancelled 10/09/17 1506: Troponin I < 0.01 10/09/17 1120: APTT 85 H 10/09/17 0916: Troponin I < 0.01 Assessment/Plan Assessment: ASSESSMENT: This is 77-year-old female with PMH hypertension, hyperlipidemia, hypothyroidism, twt-nhzmcyi-qabkyvywe diabetes mellitus who presented with chest discomfort and palpitation. She was found to be in new onset afib with [id number] VASc Score 5 and admitted to the telemetry floor for rate control and AC management. PLAN: AFIB with RVR: Pt converted to NSR yesterday afternoon. She was on heparin gtt but transitioned to DOAC. Serial trop and EKG w/o evidence of ischemia. TFT WNL. Overnight her HR was between 43 and 109. * Con't Cardizem 30 mg by mouth every 8. However there was concern for hypotension as she has had other bp control meds * Con't Labetalol 200 BID * Echocardiogram * Appreciate Cardiology consultation * Hold off home Norvasc HTN: * Con't Cholthalidone * Con't Cozaar Hypothyroid: * Con't synthroid HLD: * Con't Atorvastatin DM: * Accu-Chek * insulin sliding scale * Carbohydrate consistent diet -Pain pathway -DVT prophylaxis doac -Full code. Problem List: 1. New onset a-fib Pain Ratin Pain Location: NONE Pain Goal: Remain pain free Pain Plan: NONE Tomorrow's Labs & Rationales: CBC BEP Darlene Doll 10/10/17 1139: Attending MD Review Statement Attending Statement Attending MD Statement: examined this patient, discuss w/resident/PA/DAMPER WORKER, agreed w/resident/PA/DAMPER WORKER, discussed with family, reviewed EMR data (avail), discussed with nursing, discussed with case mgmt, reviewed images, amended to note Attending Assessment/Plan: Patient admitted here for new onset afib in ER. Negative serial cardiac enzymes, cardiology consulted. Rate controlled in sinus rythm and eliquis for a/c at discharge as per cardiology. gi/dvt prophyalxis full code. Follow up PCP in 1 week of discharge Cardiology in 2 weeks
--- NOTE | 2017-10-10 08:45 | Discharge Summary ---
Visit Information Visit Dates Admission Date: 10/09/17 Discharge Date: 10/10/2017 Hospital Course Course Attending Physician: Darlene Doll MD Primary Care Physician: Jean TOVAR,Eliceo Ramos Consulting Request: Consulting Specialty: Cardiology Hospital Course: This is 77-year-old female with PMH hypertension, hyperlipidemia, hypothyroidism, jca-jfzfkum-bqglnclba diabetes mellitus who presented with chest discomfort and palpitation. She was found to be in new onset afib with [id number] VASc Score 5 and admitted to the telemetry floor for rate control and AC management. She was seen for the following problems AFIB with RVR: Pt converted to NSR later during the day of admission. She was started on heparin gtt but transitioned to DOAC (Eliquis). Serial trop and EKG w /o evidence of ischemia. TFT WNL. Overnight her HR was between 43 and 109. Decision was to keep her on the below rate control regimen but titrate as necessary outpatient. Echo was performed and showed slight LVH but no wall motion abnormalities or severe valvular disease. Pt mentioned that Eliquis was very expensive for her on her insurance but the hospital was able to get her the first month free. She will need to discuss with industrial tech instructor regarding possibly transitioning to Coumadin as it would be much cheaper. * Cardizem CD 120 daily * STOP Labetalol 200 BID (this was a home med) and resume at half dose. * Please follow up with industrial tech instructor out pt for further work up * STOP home Norvasc * Con't Eliquis HTN: * Con't Cholthalidone * Con't Cozaar Hypothyroid: * Con't synthroid HLD: * Con't Atorvastatin DM: * Con't home PO diabetic regimen -Pain pathway -DVT prophylaxis doac -Full code. Allergies: Coded Allergies: Penicillins (Mild, rash 10/09/17) Disposition Summary Disposition Principal Diagnosis: afib with rvr Additional Diagnosis: hypertension Discharge Disposition: home or self care Discharge Instructions General Discharge Information Code Status: Full Code Patient's Diet: as tolerated Patient's Activity: as tolerated Follow-Up Instructions/Appts: see above Medications at Discharge Discharge Medications: Stop taking the following medications: Amlodipine Besylate (Amlodipine Besylate) 10 MG TABLET ORAL DAILY Qty = 90 Labetalol HCl (Labetalol HCl) 200 MG TABLET ORAL TWICE DAILY Qty = 180 Continue taking these medications: Rosuvastatin Calcium (Crestor) 10 MG TABLET 1 Tablet ORAL DAILY Qty = 30 Comments: Last Taken: 10/10/17 Time: 6:00 PM Azilsartan Med/Chlorthalidone (Edarbyclor 40-25 MG Tablet) 40 MG-25 MG TABLET 1 Tablet ORAL DAILY Qty = 90 Comments: Last Taken: 10/10/17 Time: 10:00 AM Levothyroxine Sodium (Levothyroxine Sodium) 100 MCG TABLET 1 Tablet ORAL DAILY Qty = 90 Comments: Last Taken: 10/10/17 Time: 10:00 AM Metformin HCl (Metformin HCl) 1,000 MG TABLET 1 Tablet ORAL TWICE DAILY Qty = 60 Comments: NOT GIVEN IN HOSPITAL Start taking the following new medications: Apixaban (Eliquis) 5 MG TABLET 1 Tablet ORAL TWICE DAILY Qty = 60 No Refills Instructions: . Comments: Last Taken: 10/10/17 Time: 10:00 AM Diltiazem HCl (Cardizem) 120 MG TABLET 1 Tablet ORAL DAILY Qty = 30 No Refills Instructions: . Comments: Last Taken: 10/10/17 Time: 2:00 PM Labetalol HCl (Labetalol HCl) 100 MG TABLET 1 Tablet ORAL TWICE DAILY Qty = 60 No Refills Comments: Last Taken: 10/09/17 Time: 9:00 AM Copies To: Jean TOVAR,lEiceo Peace MD Review Statement Documenting Attending: Lavon TOVAR,Darlene
--- NOTE | 2017-10-10 10:38 | PN- Cardiology ---
Subjective Subjective: The patient is awake, alert Telemetry demonstrates reversion to sinus rhythm. She is asymptomatic in regards to her underlying bradycardia The events of the last 24 hours as well as telemetry were reviewed. Review of Systems: The review of systems is negative for chest pains, palpitations nor lightheadedness. The remainder of the 14 point review of systems is noncontributory with the exception of above. Objective Vital Signs and I&Os Vital Signs Date Time Temp Pulse Resp B/P B/P Pulse O2 O2 Flow FiO2 Mean Ox Delivery Rate 10/10 0950 51 128/58 05/09 0721 97.8 51 20 128/58 93 Room Air 05/09 0544 44 140/76 05/08 2305 47 140/76 05/08 2305 47 140/76 05/08 2214 98.3 43 24 140/76 91 05/08 1847 146/56 05/08 1735 168/66 05/08 1722 168/66 05/08 1705 98.9 56 20 172/66 95 05/08 1631 98.0 50 18 170/89 95 Room Air 05/08 1616 98.0 56 20 170/89 95 Room Air 05/08 1425 54 16 156/70 96 Room Air 05/08 1332 98.1 52 18 137/62 05/08 1241 52 18 137/62 96 Room Air 05/08 1055 98.1 110 18 138/66 96 Room Air Intake & Output 05/ 1600 05/09 0800 05/09 0000 05/08 1600 05/08 0800 05/08 0000 Intake Total 200 190 510 8467 Output Total Balance 200 273 593 5276 Intake, IV 1000 Intake, Oral 200 300 240 0 Patient 194 lb 185 lb 185 lb Weight Weight Bed scale Measurement Method Physical Exam: General: Nontoxic, no apparent distress. HEENT: Sclera and conjunctiva within normal limits, without xanthelasmas. Neck: Carotids 2+ without bruits. Respiratory: Clear to auscultation, air movement is good, without accessory respiratory muscle use. Heart: Regular rate and rhythm, without murmurs, without JVD. Abdomen: Soft, nontender, no masses, normoactive bowel sounds. Extremities: Without clubbing, cyanosis, without edema. Neuro: Nonfocal exam, strength, 5 out of 5 Skin: Within normal limits without lesions. Psych: Mood and affect: Normal Current Medications: Current Medications Sig/Nicol Start time Last Medication Dose Route Stop Time Status Admin Acetaminophen 650 MG Q6P PRN 10/09 0515 AC PO Apixaban 5 MG BID 10/09 1156 AC 10/10 PO 0950 Atorvastatin Calcium 40 MG 1700 10/09 1700 AC 10/09 PO 1811 Atropine Sulfate 1 MG ONE ONE 10/10 0645 DC IV 10/10 0646 Chlorthalidone 25 MG DAILY 10/09 899 AC 10/10 PO 0950 Diltiazem HCl 30 MG Q8 10/09 0600 AC 10/09 PO 0625 Heparin Sodium 25,000 UNIT Q24H 10/09 0500 DC 10/09 (Porcine) IV 10/09 1400 0513 Sodium Chloride 500 ML Hydralazine HCl 25 MG ONCE ONE 10/09 1730 DC 10/09 PO 10/09 1731 1735 Hydrocodone Bitart/ 1 TAB Q12P PRN 10/09 0515 AC Acetaminophen PO Insulin Aspart 0 TIDAC 10/10 799 AC 10/09 SC 1811 Labetalol HCl 200 MG BID 10/09 09 AC 10/09 PO 0854 Levothyroxine Sodium 0.1 MG DAILY 10/09 899 AC 10/10 PO 0950 Losartan Potassium 25 MG DAILY 10/09 899 AC 10/10 PO 0950 Results Last 48 Hrs of Labs/Mics: Laboratory Tests 10/09/17 2300: APTT Cancelled 10/09/17 1506: Troponin I < 0.01 10/09/17 1120: APTT 85 H 10/09/17 0916: Troponin I < 0.01 10/09/17 0609: Anion Gap 11, Estimated GFR 53 L, BUN/Creatinine Ratio 27.0 H, CBC w Diff NO MAN DIFF REQ, RBC 4.36, MCV 88.8, MCH 29.8, MCHC 33.5, RDW 12.7, MPV 7.2 L, Gran % 61.6, Lymphocytes % 27.0, Monocytes % 7.1, Eosinophils % 3.6, Basophils % 0.7, Absolute Granulocytes 4.1, Absolute Lymphocytes 1.8, Absolute Monocytes 0.5 , Absolute Eosinophils 0.2, Absolute Basophils 0 10/09/17 0315: Urinalysis LIGHT H, Urine Color YEL, Urine Clarity CLEAR, Urine pH 6.5, Ur Specific [place] 1.010, Urine Protein NEG, Urine Ketones NEG, Urine Nitrite NEG, Urine Bilirubin NEG, Urine Urobilinogen 0.2, Ur Leukocyte Esterase MOD H, Ur Microscopic SEDIMENT EXAMINED, Urine RBC RARE, Urine WBC 10-15 H, Ur Epithelial Cells FEW, Urine Bacteria FEW H, Urine Hemoglobin SMALL H, Urine Glucose 100 H 10/09/17 0300: PT 11.0, INR 1.01, APTT 29, D-Dimer High Sensitivty 216 10/09/17 0237: Anion Gap 14, Estimated GFR 43 L, BUN/Creatinine Ratio 25.8 H, Glucose 170 H, Calcium 9.7, Magnesium 2.0, Total Bilirubin 0.7, AST 17, ALT 19, Alkaline Phosphatase 83, Troponin I < 0.01, Total Protein 7.3, Albumin 4.4, Globulin 2.9, Albumin/Globulin Ratio 1.5, TSH 3.500, Free T4 1.16, CBC w Diff NO MAN DIFF REQ, RBC 4.48, MCV 89.6, MCH 29.9, MCHC 33.3, RDW 13.1, MPV 7.4, Gran % 63.2, Lymphocytes % 24.6, Monocytes % 8.1, Eosinophils % 3.4, Basophils % 0.7, Absolute Granulocytes 4.8, Absolute Lymphocytes 1.9, Absolute Monocytes 0.6, Absolute Eosinophils 0.3, Absolute Basophils 0.1 10/09/17 0233: PT Cancelled, INR Cancelled, APTT Cancelled Assessment/Plan Assessment/Plan #1. New onset atrial fibrillation. #2. Long-standing hypertension #3. Chronic left bundle branch block #4. Hyperlipidemia #5. [id number] diabetes Paroxysmal atrial fibrillation: The patient presented with atrial fibrillation and a rapid ventricular response. Following further interview, she may have had further paroxysms predating her current admission. Given her underlying [id number] score, she will maintain on full anticoagulation with Eliquis. The patient will ambulate in the hallway today, and if asymptomatic may be discharged home with further outpatient follow-up. Continue telemetry? No
[2017-10-10] MEDS ORDERED: ELIQUIS5 M1 PO ×2 (10:48→14:25)
[2017-10-10] MEDS ORDERED: CARDIZEM30 M1 PO (10:49)
--- NOTE | 2017-10-10 10:51 | Patient Discharge Instructions ---
Discharge Instructions General Discharge Information You were seen/treated for: Atrial fib with RVR You had these procedures: Rate control Anticoagulation Watch for these problems: 1. chest pain 2. shortness of breath 3. palpitations 4. dizziness 5. If your heart rate is less than 50 beats per minute please hold your rate control medication, such as Labetalol and Cardizem, and call your third helper regarding when to take your next dose. Special Instructions: please follow up with your third helper in one week please follow up with your pcp in one week please take your new meds as precribed please stop taking Norvasc as we added a new medication. Your third helper may add it back on at a later date if you BP is not well controlled Diet Continue normal diet: Yes Activity Full Activity/No Limits: Yes Acute Coronary Syndrome Inclusion Criteria At DC or during hospital stay patient has or had the following: ACS DIAGNOSIS No Discharge Core Measures Meds if any: Prescribed or Continued at Discharge Meds if any: NOT Prescribed or Continued at Discharge Congestive Heart Failure Inclusion Criteria At DC or during hospital stay patient has or had the following: CHF DIAGNOSIS No Discharge Core Measures Meds if any: Prescribed or Continued at Discharge Meds if any: NOT Prescribed or Continued at Discharge Cerebrovascular accident Inclusion Criteria At DC or during hospital stay patient has or had the following: CVA/TIA Diagnosis No Discharge Core Measures Meds if any: Prescribed or Continued at Discharge Meds if any: NOT Prescribed or Continued at Discharge Venous thromboembolism Inclusion Criteria VTE Diagnosis No VTE Type NONE VTE Confirmed by (Test) NONE Discharge Core Measures - Per Current guidelines, there needs to be overlap - treatment for the first 5 days of Warfarin therapy. - If discharged on Warfarin prior to 5 days of - overlap therapy, the patient will need to be - assessed for post discharge needs including - *Post discharge parental anticoagulation - *Warfarin and/or parental anticoagulation education - *Follow up date to check INR post discharge At least 5 days overlap therapy as Inpatient No Meds if any: Prescribed or Continued at Discharge Note: Overlap Therapy is Warfarin and Anticoagulant Meds if any: NOT Prescribed or Continued at Discharge
[2017-10-10] MEDS ORDERED: CARDIZEM120 M1 PO ×2 (14:08→14:25)
[2017-10-10 14:13] VITALS: BP 176/56
[2017-10-10] MEDS ORDERED: LABETALOL HCL100 M1 PO (14:30)
== END 2017-10-10 17:00 | DRG 310 ==
LOC: ERH 02:02 → ERHI 05:02 → 1NO 05:02 → ERHI 09:46 → ENRESERV 15:20 → ENTRNSPT 16:24 → 1NO 16:25 → EDTRNSPT 16:33 → EDTRNSPTSTS 16:33 → 1NO 16:46 → CMPTRNSPT 16:54 → ENPENDDIS 10-10 14:32 → 1NO 10-10 17:00
PROVIDERS: Emergency Medicine; Internal Medicine Hematology & Oncology
DX: I48.0 Paroxysmal atrial fibrillation (principal); E11.9 Type 2 diabetes mellitus without complications; I44.7 Left bundle-branch block, unspecified; E03.9 Hypothyroidism, unspecified; Z79.84 Long term (current) use of oral hypoglycemic drugs; E78.5 Hyperlipidemia, unspecified; I10 Essential (primary) hypertension; Z88.0 Allergy status to penicillin; Z90.49 Acquired absence of other specified parts of digestive tract
CPT/HCPCS: 1NP; 71045; 81001; 82436; 93005; 93010; 93306; 96374; 96375; 99291; J0461; J1644